=== PATIENT | female | born 1995 | race African-American/Black ===

== ENCOUNTER 2017-02-13 23:00 | Emergency (ER) | payer OTHER ==
[~2017-02-13 23:00] MED LIST: LUMIGAN2.5 ML; ROBITUSSIN COU118 M6 PO
[2017-02-13 23:12] LABS: INFLUENZA A NEG (NEG)
[2017-02-13 23:13] LABS: INFLUENZA B NEG (NEG)
== END 2017-02-14 00:32 | disposition home or self-care (01) ==
LOC: SED 23:00
DX: J02.0 Streptococcal pharyngitis (principal)
CPT/HCPCS: 87804; 87880; 99283